=== PATIENT | male | born 1960 | race Caucasian/White ===

== ENCOUNTER 2024-02-13 03:20 | Inpatient (IN) | payer MEDICAID, SELFPAY ==
[2024-02-13] VITALS (10 sets, daily range): BP systolic 101–125; BP diastolic 50–69; PULSE 72–96; RESP 17–24; TEMP 96.8–98.9; O2SAT 93–96
[~2024-02-13] VITALS: Ht 185.4 cm; Wt 81.8 kg
[~2024-02-13 03:20] MED LIST: FAMO-1 PO; NORCO10T PO
[2024-02-13 04:31] LABS: BASOPHILS % (AUTO) 0.4 % (0-1); EOSINOPHILS # (AUTO) 0.1 X10'3 (0-0.9); EOSINOPHILS % (AUTO) 1.2 % (0-6); HEMATOCRIT 41.7 % (42.0-52.0); HEMOGLOBIN 14.1 g/dl (14.0-17.9); LYMPHOCYTES # (AUTO) 1.2 X10'3 (1.1-4.8); LYMPHOCYTES % (AUTO) 10.3 % (21-51); MEAN CORPUSCULAR HEMOGLOBIN 30.8 PG (27.0-31.0); MEAN CORPUSCULAR HGB CONC 33.9 g/dL (33.0-36.5); MEAN CORPUSCULAR VOLUME 90.9 FL (78-98); MEAN PLATELET VOLUME 8.9 FL (7.4-10.4); MONOCYTES # (AUTO) 0.1 X10'3 (0-0.9); MONOCYTES % (AUTO) 1.1 % (2-12); NEUTROPHILS # (AUTO) 10.3 X10'3 (1.8-7.7); PLATELET COUNT 279 X10'3 (140-440); RED BLOOD COUNT 4.58 X10'6 (4.70-6.10); WHITE BLOOD COUNT 11.8 X10'3 (4.5-11.0)
[2024-02-13 04:46] LABS: ALANINE AMINOTRANSFERASE 15 U/L (12-78); ALBUMIN 3.1 G/DL (3.4-5.0); ALBUMIN/GLOBULIN RATIO 0.7 (1.1-1.5); ALKALINE PHOSPHATASE 83 IU/L (46-116); ANION GAP 9 (8-16); ASPARTATE AMINO TRANSFERASE 17 U/L (10-37); BILIRUBIN,TOTAL 0.4 MG/DL (0.1-1.0); BLOOD UREA NITROGEN 19 MG/DL (7-18); BUN/CREATININE RATIO 25.3 (10.0-20.0); CALCIUM 9.4 MG/DL (8.5-10.1); CHLORIDE 107 MMOL/L (99-107); CREATININE 0.75 MG/DL (0.60-1.10); GLUCOSE 127 MG/DL (70-104); POTASSIUM 4.5 MMOL/L (3.5-5.1); SODIUM 138 MMOL/L (135-145); TOTAL CARBON DIOXIDE 22.4 MMOL/L (24-32); TOTAL PROTEIN 7.3 G/DL (6.4-8.2); eCRCL 111 ML/MIN; eGFR > 90 ML/MIN
[2024-02-13] MEDS ORDERED: magnesium sulf-water 4G/100mL 100 ML IV PRN (06:00)
[2024-02-13] MEDS ORDERED: magnesium sulf-water 2g/50mL 50 ML IV PRN (06:00)
[2024-02-13] MEDS ORDERED: potassium Cl 20 mEq SR tablet PO PRN ×2 (06:00)
[2024-02-13] MEDS ORDERED: potassium Cl 40MEQ/1/2NS 520ml 520 ML IV PRN (06:00)
[2024-02-13] MEDS ORDERED: magnesium Cl slow-release 64mg tablet PO PRN (06:00)
[2024-02-13] MEDS: K and/or MAG REPLACEMENT MC SCH (08:00)
[2024-02-13] MEDS: azithromycin/NS 500mg/250ml 250 ML IV SCH (08:21)
[2024-02-13] MEDS: CefTRIAXone/D5W-Rocephin 1gm 50 ML IV SCH (08:21)
[2024-02-13] MEDS: methylPREDNISolone sod succ 125mg/2ml vial IV SCH (08:21)
[2024-02-13] MEDS: atorvastatin 20mg tablet PO SCH (08:22)
[2024-02-13] MEDS: heparin, porcine 5000 units/ml vial SQ SCH (08:22)
[2024-02-13] MEDS: losartan 25mg tablet PO SCH (08:41)
[2024-02-13] MEDS: ipratropium/albuterol 3ml nebule NEB PRN (13:51)
[2024-02-13] MEDS ORDERED: ATOR40TA72 PO (16:54)
[2024-02-13] MEDS ORDERED: ASPI-1397 PO (16:54)
[2024-02-13] MEDS ORDERED: NICO-630 TOP (16:54)
[2024-02-13] MEDS ORDERED: CARV3.1244 PO (16:54)
[2024-02-13] MEDS ORDERED: LOSA25TA41 PO (16:54)
[2024-02-13] MEDS ORDERED: IPRA3AMP31 PO (16:54)
[2024-02-13] MEDS ORDERED: TIOT18CA3 INH (16:54)
[2024-02-14] VITALS (9 sets, daily range): BP systolic 113–124; BP diastolic 71–78; PULSE 54–97; RESP 16–24; TEMP 97.3–98.7; O2SAT 93–95
[2024-02-14 04:32] LABS: BASOPHILS # (AUTO) 0.1 X10'3 (0-0.2); BASOPHILS % (AUTO) 0.3 % (0-1); EOSINOPHILS % (AUTO) 0 % (0-6); HEMATOCRIT 41.1 % (42.0-52.0); HEMOGLOBIN 14.1 g/dl (14.0-17.9); LYMPHOCYTES # (AUTO) 1.9 X10'3 (1.1-4.8); LYMPHOCYTES % (AUTO) 9.4 % (21-51); MEAN CORPUSCULAR HEMOGLOBIN 30.9 PG (27.0-31.0); MEAN CORPUSCULAR HGB CONC 34.2 g/dL (33.0-36.5); MEAN CORPUSCULAR VOLUME 90.4 FL (78-98); MEAN PLATELET VOLUME 9.3 FL (7.4-10.4); MONOCYTES # (AUTO) 0.7 X10'3 (0-0.9); MONOCYTES % (AUTO) 3.4 % (2-12); NEUTROPHILS # (AUTO) 17.9 X10'3 (1.8-7.7); NEUTROPHILS % (AUTO) 86.9 % (42-75); PLATELET COUNT 327 X10'3 (140-440); RED BLOOD COUNT 4.55 X10'6 (4.70-6.10); WHITE BLOOD COUNT 20.6 X10'3 (4.5-11.0)
[2024-02-14 05:00] LABS: ALANINE AMINOTRANSFERASE 12 U/L (12-78); ALBUMIN/GLOBULIN RATIO 0.7 (1.1-1.5); ALKALINE PHOSPHATASE 74 IU/L (46-116); ANION GAP 9 (8-16); ASPARTATE AMINO TRANSFERASE 13 U/L (10-37); BILIRUBIN,TOTAL 0.4 MG/DL (0.1-1.0); BLOOD UREA NITROGEN 29 MG/DL (7-18); BUN/CREATININE RATIO 31.9 (10.0-20.0); CALCIUM 9.8 MG/DL (8.5-10.1); CHLORIDE 102 MMOL/L (99-107); CREATININE 0.91 MG/DL (0.60-1.10); GLUCOSE 163 MG/DL (70-104); PHOSPHORUS 2.3 MG/DL (2.3-4.5); POTASSIUM 4.4 MMOL/L (3.5-5.1); SODIUM 136 MMOL/L (135-145); TOTAL PROTEIN 7.1 G/DL (6.4-8.2); eCRCL 94 ML/MIN; eGFR 84 ML/MIN
[2024-02-15] VITALS (8 sets, daily range): BP systolic 115–128; BP diastolic 59–65; PULSE 78–87; RESP 15–18; TEMP 97.5–98.4; O2SAT 90–96
[2024-02-15 06:21] LABS: BASOPHILS # (AUTO) 0.1 X10'3 (0-0.2); BASOPHILS % (AUTO) 0.2 % (0-1); EOSINOPHILS % (AUTO) 0 % (0-6); HEMATOCRIT 40.6 % (42.0-52.0); HEMOGLOBIN 13.8 g/dl (14.0-17.9); LYMPHOCYTES # (AUTO) 1.3 X10'3 (1.1-4.8); LYMPHOCYTES % (AUTO) 6.4 % (21-51); MEAN CORPUSCULAR HEMOGLOBIN 30.7 PG (27.0-31.0); MEAN CORPUSCULAR HGB CONC 33.9 g/dL (33.0-36.5); MEAN CORPUSCULAR VOLUME 90.5 FL (78-98); MEAN PLATELET VOLUME 9.2 FL (7.4-10.4); MONOCYTES # (AUTO) 0.6 X10'3 (0-0.9); NEUTROPHILS # (AUTO) 18.8 X10'3 (1.8-7.7); NEUTROPHILS % (AUTO) 90.4 % (42-75); PLATELET COUNT 318 X10'3 (140-440); RED BLOOD COUNT 4.48 X10'6 (4.70-6.10); WHITE BLOOD COUNT 20.8 X10'3 (4.5-11.0)
[2024-02-15 06:36] LABS: ALANINE AMINOTRANSFERASE 13 U/L (12-78); ALBUMIN 2.8 G/DL (3.4-5.0); ALBUMIN/GLOBULIN RATIO 0.7 (1.1-1.5); ALKALINE PHOSPHATASE 87 IU/L (46-116); ANION GAP 6 (8-16); ASPARTATE AMINO TRANSFERASE 9 U/L (10-37); BILIRUBIN,TOTAL 0.3 MG/DL (0.1-1.0); BLOOD UREA NITROGEN 28 MG/DL (7-18); BUN/CREATININE RATIO 34.1 (10.0-20.0); CALCIUM 9.9 MG/DL (8.5-10.1); CHLORIDE 104 MMOL/L (99-107); CREATININE 0.82 MG/DL (0.60-1.10); GLUCOSE 141 MG/DL (70-104); MAGNESIUM 2.2 MG/DL (1.5-2.4); PHOSPHORUS 2.4 MG/DL (2.3-4.5); POTASSIUM 4.2 MMOL/L (3.5-5.1); SODIUM 135 MMOL/L (135-145); TOTAL CARBON DIOXIDE 24.9 MMOL/L (24-32); TOTAL PROTEIN 6.7 G/DL (6.4-8.2); eCRCL 104 ML/MIN; eGFR > 90 ML/MIN
[2024-02-16 06:39] VITALS: BP 124/77; PULSE 85; RESP 13; TEMP 97.5; O2SAT 97
[2024-02-16 07:33] VITALS: RESP 13; O2SAT 97
[2024-02-16 07:48] LABS: BASOPHILS # (AUTO) 0.1 X10'3 (0-0.2); BASOPHILS % (AUTO) 0.3 % (0-1); EOSINOPHILS % (AUTO) 0 % (0-6); HEMATOCRIT 40.1 % (42.0-52.0); HEMOGLOBIN 13.4 g/dl (14.0-17.9); LYMPHOCYTES % (AUTO) 9.4 % (21-51); MEAN CORPUSCULAR HEMOGLOBIN 30.4 PG (27.0-31.0); MEAN CORPUSCULAR HGB CONC 33.4 g/dL (33.0-36.5); MEAN CORPUSCULAR VOLUME 90.9 FL (78-98); MEAN PLATELET VOLUME 8.9 FL (7.4-10.4); MONOCYTES # (AUTO) 1.3 X10'3 (0-0.9); MONOCYTES % (AUTO) 5.9 % (2-12); NEUTROPHILS # (AUTO) 17.9 X10'3 (1.8-7.7); NEUTROPHILS % (AUTO) 84.4 % (42-75); PLATELET COUNT 289 X10'3 (140-440); RED BLOOD COUNT 4.41 X10'6 (4.70-6.10); RED CELL DISTRIBUTION WIDTH 14.1 % (11.5-14.5); WHITE BLOOD COUNT 21.2 X10'3 (4.5-11.0)
[2024-02-16] MEDS: predniSONE 20 mg tablet PO SCH (08:07)
[2024-02-16 08:10] LABS: ALANINE AMINOTRANSFERASE 16 U/L (12-78); ALBUMIN 2.8 G/DL (3.4-5.0); ALBUMIN/GLOBULIN RATIO 0.8 (1.1-1.5); ALKALINE PHOSPHATASE 71 IU/L (46-116); ANION GAP 7 (8-16); ASPARTATE AMINO TRANSFERASE 13 U/L (10-37); BILIRUBIN,TOTAL 0.2 MG/DL (0.1-1.0); BLOOD UREA NITROGEN 33 MG/DL (7-18); BUN/CREATININE RATIO 36.7 (10.0-20.0); CALCIUM 9.3 MG/DL (8.5-10.1); CHLORIDE 102 MMOL/L (99-107); GLUCOSE 133 MG/DL (70-104); MAGNESIUM 2.2 MG/DL (1.5-2.4); PHOSPHORUS 2.3 MG/DL (2.3-4.5); POTASSIUM 4.4 MMOL/L (3.5-5.1); SODIUM 135 MMOL/L (135-145); TOTAL CARBON DIOXIDE 26.1 MMOL/L (24-32); TOTAL PROTEIN 6.5 G/DL (6.4-8.2); eCRCL 95 ML/MIN; eGFR 85 ML/MIN
[2024-02-16 08:11] LABS: TOTAL CELLS COUNTED 100
[2024-02-16 08:12] LABS: BURR CELLS FEW; PLATELET ESTIMATE NORMAL
[2024-02-16 10:00] VITALS: BP 131/76; PULSE 66; RESP 20; TEMP 97.3; O2SAT 93
[2024-02-16 15:55] VITALS: PULSE 68; RESP 20; O2SAT 90
[2024-02-16] MEDS: albuterol 2.5 MG/3 ML nebule NEB PRN (15:55)
[2024-02-16 16:00] VITALS: PULSE 70; RESP 20
[2024-02-16] MEDS ORDERED: NICO-630 TOP (16:30)
[2024-02-16] MEDS ORDERED: LOSA25TA41 PO (16:30)
[2024-02-16] MEDS ORDERED: ASPI-1397 PO (16:30)
[2024-02-16] MEDS ORDERED: CARV3.1244 PO (16:30)
[2024-02-16] MEDS ORDERED: PRED10TA23 PO (16:32)
[2024-02-16] MEDS ORDERED: LEVO-65 PO (16:32)
[2024-02-16] MEDS ORDERED: IPRA4AER INH (17:16)
== END 2024-02-16 18:40 | disposition home or self-care (01) | DRG 140 ==
LOC: ER 03:20 → ED HOLD 05:59 → SUR 3N 16:03
PROVIDERS: ADMIT Internal Medicine Critical Care Medicine; ATTEND Internal Medicine
DX: J44.1 Chronic obstructive pulmonary disease with (acute) exacerbation (principal); I21.4 Non-ST elevation (NSTEMI) myocardial infarction; J18.9 Pneumonia, unspecified organism; J44.0 Chronic obstructive pulmonary disease with (acute) lower respiratory infection; I10 Essential (primary) hypertension; F17.210 Nicotine dependence, cigarettes, uncomplicated; H54.62 Unqualified visual loss, left eye, normal vision right eye; E78.5 Hyperlipidemia, unspecified; Z79.82 Long term (current) use of aspirin
CPT/HCPCS: 36415; 71045; 80053; 83735; 84100; 84484; 85007; 85025; 87081; 93005; 94640; 94760; 97161; 97530; 99285; G0378; J0456; J0696; J1644; J2919; J7512